=== PATIENT | male | born 1950 | race Caucasian/White ===

== ENCOUNTER 2019-07-11 23:24 | Emergency (ER) | payer OTHER ==
[2019-07-11 23:49] LABS: #Basophils 0.1 thou/uL (0.0-0.2); #Eosinphils 0.3 thou/uL (0.0-0.7); #Lymphocytes 2.2 thou/uL (1.20-3.40); #Neutrophils 9.3 thou/uL (1.40-6.50); %Basophils 0.6 % (0.0-1.0); %Lymphocytes 17.1 % (21.0-51.0); %Monocytes 7.8 % (0.0-10.0); %Neutrophils 72.5 % (42.0-75.0); Hemoglobin 13.3 g/dL (14.0-18.0); Mean Corpuscular HGB CONC 32.8 g/dL (32.0-36.0); Mean Corpuscular Hemoglobin 28.6 pg (27.0-31.0); Mean Corpuscular Volume 87.2 fL (78.0-98.0); Mean Platelet Volume 8.8 fL (7.4-10.4); Platelet Count 216 thou/uL (130-400); RBC Distribution Width 13.7 % (11.5-14.5); Red Blood Cell (RBC) Count 4.65 mill/uL (4.70-6.10); White Blood Cell (WBC) Count 12.8 thou/uL (4.8-10.8)
[2019-07-12 00:10] LABS: ALT (SGPT) 16 U/L (8-55); AST (SGOT) 13 U/L (5-34); Albumin 4.2 g/dL (3.4-4.8); Alkaline Phosphatase 92 U/L (40-110); Anion Gap 19 mmol/L (10-20); BUN (Urea Nitrogen) 25 mg/dL (8.4-25.7); Bilirubin, Total 0.3 mg/dL (0.2-1.2); CK (CPK) 59 U/L (30-200); Calc. Creatinine Clearance 0 mL/min (70-130); Calcium 9.6 mg/dL (7.8-10.44); Carbon Dioxide 18 mmol/L (23-31); Chloride 105 mmol/L (98-107); Estimated GFR-MDRD Greater than 90; Globulin 2.6 g/dL (2.4-3.5); Glucose 116 mg/dL (80-115); Potassium 3.6 mmol/L (3.5-5.1); Protein, Total 6.8 g/dL (5.8-8.1); Sodium 138 mmol/L (136-145)
--- NOTE | 2019-07-12 00:12 | RAD ---
Exam: Chest one view HISTORY:Chest pain Comparison: None FINDINGS: Cardiac silhouette: Normal. There are sternotomy wires. Aorta: Unremarkable Pulmonary vessels: Normal Costophrenic angles: Minimal blunting of the left costophrenic angle likely due to small effusion. LUNGS: No masses or consolidation in the right lung. Linear opacity left lung base may represent some segmental atelectasis. Pneumothorax: None Osseous abnormalities: None IMPRESSION: Minimal pleural and parenchymal changes in the left lung base. Continued surveillance.
[2019-07-12] MEDS ORDERED: Morphine 4 MG/ML VIAL ONE ×2 (00:18→01:28)
[2019-07-12] MEDS ORDERED: Ondansetron PF 4 MG/2 ML Vial ONE ×2 (00:18→01:28)
[2019-07-12] MEDS ORDERED: Ketorolac Tromethamine 30 MG/ML VIAL ONE (02:17)
--- NOTE | 2019-07-12 08:00 | CT ---
PRELIMINARY REPORT/[facility]/EMERGENCY AFTER HOURS PROCEDURE: PROCEDURE INFORMATION: Exam: CT Angiography Chest With Contrast Exam date and time: 07/12/2019 1:31 AM Clinical history: 68 years old, male; Patient HX: 68m presenting with sudden onset of left shoulder/u pper arm pain. PT reports pain started while he was sitting in a chair at home. PT denies radiation o f pain, denies chest pain or shortness of breath. PT reports recent bypass 7 weeks ago and stopping b lood thinner on Tuesday TECHNIQUE: Imaging protocol: Computed tomographic angiography of the chest with intravenous contrast. 3D rendering: MIP reconstructed images were created and reviewed. COMPARISON: No relevant prior studies available. FINDINGS: Pulmonary arteries: No pulmonary emboli. Aorta: No aortic aneurysm. No aortic dissection. Lungs: Nonspecific bibasilar hazy opacities likely represent subsegmental atelectasis, however superi mposed airspace consolidation cannot be completely excluded. No masses. Pleural space: No pneumothorax. No pleural effusion. Heart: Coronary arteries calcifications are severe. Mild to moderate global cardiomegaly. Small diffu se pericardial effusion. Lymph nodes: No enlarged lymph nodes. Bones/joints: Median sternotomy. No acute fracture. Soft tissues: Unremarkable. 6.6 cm left posterior renal cyst. Incompletely included gastic surgical changes. IMPRESSION: No pulmonary emboli. Coronary arteries calcifications are severe. Small diffuse pericardial effusion. Thank you for allowing us to participate in the care of your patient. Dictated and Authenticated by: Fadia Bronson MD 07/12/2019 1:57 AM Central Time ([place] & [place]) FINAL REPORT EMERGENT AFTER HOURS CT ANGIO OF CHEST PERFORMED WITH INTRAVENOUS CONTRAST ENHANCEMENT WITH 3D RECONS TRUCTIONS: HISTORY: Left-sided chest and shoulder pain. FINDINGS: The lungs are clear of any infiltrates. There are reticular changes in the lung bases which could re present atelectasis or scarring. There is slightly more pronounced linear change in the left base pr obably on the basis of scar. No pulmonary nodules are identified or pleural effusions. Postop sternotomy changes are seen. The thoracic aorta is normal in caliber. There is good pulmonary artery opacification, there is no CT evidence for pulmonary embolus. Postoperative changes of the stomach are noted. The visualized liver parenchyma shows no focal findi ngs. Large hypodensity involving the left kidney is statistically most likely a cyst. It is partial ly visualized. It measures greater than 6 cm. IMPRESSION: 1. No CT evidence of pulmonary embolus. 2. Tiny pericardial effusion. 3. This report is in agreement with the temporary report issued by [facility]. POS: [facility]
[2019-07-12] MEDS ORDERED: ISOVUE-370 76%-LOCM 1 ML ONE (18:10)
== END 2019-07-12 03:09 | disposition home or self-care (01) ==
LOC: ERS 23:24
DX: M25.512 Pain in left shoulder (principal); E11.9 Type 2 diabetes mellitus without complications; E78.5 Hyperlipidemia, unspecified; I10 Essential (primary) hypertension; K21.9 Gastro-esophageal reflux disease without esophagitis; Z87.891 Personal history of nicotine dependence; Z79.82 Long term (current) use of aspirin; Z79.84 Long term (current) use of oral hypoglycemic drugs; Z79.899 Other long term (current) drug therapy
CPT/HCPCS: 36415; 71045; 71275; 80053; 82550; 84484; 85025; 93005; 94760; 96374; 96375; 96376; J1885; J2270; J2405; Q9966